=== PATIENT | male | born 2000 | race Hispanic/Latino ===

== ENCOUNTER 2021-05-18 23:08 | Inpatient (IN) | payer OTHER ==
[~2021-05-18] VITALS: Ht 165.1 cm; Wt 59.1 kg
[2021-05-19 01:24] LABS: HEMATOCRIT 44.2 % (42.0-52.0); HEMOGLOBIN 15.3 g/dl (13.5-17.5); MEAN CORPUSCULAR HEMOGLOBIN 30.9 pg (27.0-33.0); MEAN CORPUSCULAR HGB CONC 34.6 g/dl (32.0-36.5); MEAN CORPUSCULAR VOLUME 89.3 fl (80.0-96.0); PLATELET COUNT, AUTOMATED 219 10^3/uL (150-450); RED BLOOD COUNT 4.95 10^6/uL (4.30-6.10); WHITE BLOOD COUNT 8.6 10^3/uL (4.0-10.0)
[2021-05-19 01:46] LABS: AMPHETAMINES LEVEL URINE NEGATIVE (NEGATIVE); BARBITURATES URINE NEGATIVE (NEGATIVE); BENZODIAZEPINES URINE NEGATIVE (NEGATIVE); CANNABINOIDS URINE NEGATIVE (NEGATIVE); COCAINE METABOLITE URINE NEGATIVE (NEGATIVE); METHADONE URINE NEGATIVE (NEGATIVE); OPIATES URINE NEGATIVE (NEGATIVE); PHENCYCLIDINE URINE NEGATIVE (NEGATIVE)
[2021-05-19 01:53] LABS: ALBUMIN 4.1 GM/DL (3.2-5.2); ALT/SGPT 33 U/L (12-78); BILIRUBIN,DIRECT 0.1 MG/DL (0.0-0.2); BILIRUBIN,TOTAL 0.4 MG/DL (0.2-1.0); BLOOD UREA NITROGEN 14 MG/DL (7-18); CALCIUM LEVEL 8.8 MG/DL (8.5-10.1); CARBON DIOXIDE LEVEL 29 MEQ/L (21-32); CHLORIDE LEVEL 106 MEQ/L (98-107); CREATININE FOR GFR 0.88 MG/DL (0.70-1.30); ETHYL ALCOHOL (ETHANOL) < 0.003 % (0.000-0.010); GLUCOSE, FASTING 84 MG/DL (70-100); POTASSIUM SERUM 3.9 MEQ/L (3.5-5.1); SALICYLATE LEVEL < 1.7 MG/DL (5.0-30.0); SODIUM LEVEL 140 MEQ/L (136-145); TOTAL PROTEIN 7.8 GM/DL (6.4-8.2)
[2021-05-19 01:54] LABS: ACETAMINOPHEN LEVEL < 2.0 UG/ML (10.0-30.0)
[2021-05-19] MEDS ORDERED: HOME MED LIST COMPLETE! XX SCH (13:35)
[2021-05-19 15:02] LABS: RSV AMPLIFICATION NEGATIVE (NEGATIVE)
[2021-05-19] MEDS ORDERED: MOM 30ML SUSPENSION UDC PO PRN (16:30)
[2021-05-19] MEDS ORDERED: ACETAMINOPHEN TAB 650MG DOSE (2X325MG) PO PRN (16:30)
[2021-05-19] MEDS ORDERED: MAALOX 30 ML SUSP *UDC PO PRN (16:30)
[2021-05-19] MEDS ORDERED: traZODone 50 MG TAB PO PRN (16:30)
[2021-05-19 18:59] VITALS: BP 141/86
[2021-05-20 06:34] VITALS: BP 118/78
--- NOTE | 2021-05-20 13:19 | MHHPEPDOC ---
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 States, "I tried to shove it off and continued training but it got worse. I was telling myself, I would do anything to have this feeling go away. 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 Patient has only been been in the [employer] since September and [facility] is the first duty station. This is his first psychiatric hospitalization. Denies a history of depression. However he reports history of anxiety prior to the [employer] but never seen by MD for it. States that he had increased anxiety since last year but not prior. States that he is always having Self Doubt. 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 During MHE pt described that he has had vague thoughts of suicide but no plan. Upon discussing with ED provider TW was informed that pt had a very descriptive plan that he provided to ED provider. 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 At this point pt seems to be minimizing symptoms in order to be discharged. Due to this and pt withholding the truth from TW, it is determined that pt reliability is in question. Psychiatric Review of Systems Depression (2 or more weeks): depressed mood, insomnia/hypersomnia, feelings of excess/guilt, feelings of worthlesness (feeling hopeless and helpless), decreased energy, difficulty concentrating, psychomotor changes, suicidal thoughts Ira (4 or more days of): denies Psychosis: denies PTSD: denies Anxiety: stressor related anxiety, panic attacks Anxiety/ 6 months or more of: restlessness, keyed up, easily fatigued, difficulty concentrating, sleep disturbance Past Psychiatric History Previous Psychiatric Diagnosis: None Previous Psychiatric Admissions: This is first Suicide Attempts: Denies Psychiatric Follow-up: Behavioral Health Psychiatric medications: None Past Medical History Medical Problems No contributory issues Appendectomy age 6 Allergies - NKDA Head Injury: No Seizures: No Hospitalizations: No Surgeries: Yes Family Medical/Psychiatric HX Medical Problems No contributory medical history Psychiatric Disorders: No Addiction: No Suicide Attemps/Completions: Yes (Maternal Uncle - killed himself with a razor he was incarcerated at the time) Addiction History nicotine (occasional smoker and vape) Social History Childhood: Born in [place], [place]. Parents before he was born. Lived with mother and stepfather, has an older brother and sister and younger sister. He is the third child. States he did decent until High School and then went to remedial school. Describes his childhood as "alone" Abuse/Trauma: Denies Current Living Situation: Lives in [facility] on post Education: High School Grad Employment: Active Duty Social Support: Friends Legal: None Marital: Single, No Children Mental Status Examination General Appearance: well groomed, appears stated age, hospital scubs/clothing Build: thin Demeanor: average, guarded Eye Contact: fair Activity: anxious Behavior: cooperative Speech: clear, low in volume Mood: depressed (mild), anxious Affect: constricted Thought Process: logical/linear Thought Content (Delusions): none reported Thought Content (Other): none reported Thought Content (Aggressive): none reported Perception (Hallucinations): none reported Perception (Other): none reported Cognition (Impairment of): none reported Cognition(Intelligence Est.): average Oriented: Awake, Alert, Oriented times three Insight: fair Judgment: Fair Psychosis: Denies Diagnoses Major Depressive Disorder, Single Episode, Moderate Unspecified Anxiety Disorder Nicotine Use Disorder A-FIB/CHADSVASC A-FIB History Current/History of A-Fib/PAF?: No Current PO Anticoag Therapy: No Assessment 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 States, "I tried to shove it off and continued training but it got worse. pt stated that he doesn't believe that there are many specific stressors he can identify, but stated that he always struggles with knowing his self-worth stating "I feel inferior to everyone, if I make one small mistake I think wow you fucking idiot and want to kill myself." Pt denies HI and AH/VH. 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 Patient is reporting depressive symptoms significant for major depressive disorder, and unspecified anxiety disorder. Patient does not currently want to start any medication, feels strongly that he would prefer psychotherapy for this current problem. Patient to be discharged when he is stable Initial Treatment Plan 1. Patient was admitted on a [9.39] status. 2. Complete history was obtained. 3. With patients permission, family will be contacted and database will be expanded. 4. Patients medication regimen will be reviewed and changed accordingly. 5. Patient will be provided with protected environment. 6. Patient will be treated with individual, group, and milieu therapies. 7. Patient will receive supportive psych-education. 8. Discharge planning will commence immediately. 9. Outpatient follow-up treatment will be strongly recommended. 10. The initial treatment plan will focus initially on: * Depression. * Risk for suicide. ESTIMATED LENGTH OF STAY: 3-5 DAYS. TIME SPENT COUNSELING AND COORDINATING INITIAL CARE: 60 minutes. N/A-No Antipsychotics Vital Signs Vital Signs Date Time Temp Pulse Resp B/P (MAP) Pulse Ox O2 Delivery O2 Flow Rate FiO2 05/20/21 06:34 98.0 66 12 118/78 (91) 95 Room Air Laboratory Data 24H Labs Laboratory Tests 2 05/19/21 14:08: Coronavirus (COVID-19)(PCR) NEGATIVE, Influenza Type A (RT-PCR) NEGATIVE, Influenza Type B (RT-PCR) NEGATIVE, Respiratory Syncytial Virus (PCR) NEGATIVE Medications No Active Prescriptions or Reported Meds Allergies Coded Allergies: No Known Allergies (Unverified , 05/18/21) CROW FUCHS NP May 20, 2021 10:13
--- NOTE | 2021-05-20 13:33 | HPEPDOC ---
[facility] Medical History & Physical Date of Admission May 19, 2021 Date of Service: May 20, 2021 Other Provider Audrey Sorenson NP, psychiatry Attending Physician: KIM NGUYEN DO History and Physical CHIEF COMPLAINT: Very bad anxiety HISTORY OF PRESENT ILLNESS: Patient is a 20-year-old male who presented to the inpatient mental health unit due to an anxiety attack. Patient stated that he tried to show evolving training but it got worse. Patient was having thoughts of self-harm. 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 Patient was admitted to the inpatient mental health unit. Patient does not have any medical problems at this time and states that he is not currently suicidal. PAST MEDICAL HISTORY: Denies PAST SURGICAL HISTORY: Appendectomy at age 6 SOCIAL HISTORY: Very occasionally smokes a cigarette, denies alcohol or illicit drug use. 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 REVIEW OF SYSTEMS: General: Patient denies fevers HEENT: Patient denies headaches Cardiovascular: Patient denies chest pain Respiratory: Patient denies shortness of breath, cough GI: Patient denies abdominal pain, nausea, vomiting, diarrhea : Patient denies increased frequency or pain with urination Extremities: Patient denies swelling or pain in extremities Neurological: Patient denies numbness or tingling in legs Skin: Patient denies any new rashes or lesions. Hematologic: Patient denies any easy bruising. Lymphatic: Patient denies any lumps lumps or bumps in neck, axilla, or groin HOME MEDICATIONS: Please see below. PHYSICAL EXAMINATION: VITAL SIGNS: Temperature 98.8, pulse 66, respiratory rate 12, blood pressure 118/78, pulse oximetry 95% on room air. General: Alert and oriented male patient who was walking on the unit when I walked on to the unit. Patient was able to walk into the examination room without any difficulty. Patient did not appear to be in any acute distress HEENT: Normocephalic, atraumatic, moist mucous membranes. Neck: No lymphadenopathy or thyromegaly Cardiac: Regular rate and rhythm, no murmurs, normal S1, normal S2 Pulm: Clear to auscultation bilaterally. No wheezes, rhonchi, rales Abd: Nondistended, nontender to palpation, normal bowel sounds Ext: No edema bilateral lower extremities Neuro: Patient was able to move all 4 extremities on command and reported equal sensation light touch in all 4 extremities. Skin: Skin of the head, neck, upper and lower extremities was examined did not show any evidence of rash or wounds. LABORATORY DATA: See below. IMAGING: No imaging has been performed MICROBIOLOGY: Please see below. ASSESSMENT: 20-year-old male who presented to the inpatient mental health unit for anxiety and suicidal ideations. . PLAN: 1. Depression/anxiety. Continue treatment per psychiatry. Disposition: Patient can be discharged per psychiatry. Please reconsult hospitalist if the need arises. Thank you for this consult. Vital Signs Vital Signs Date Time Temp Pulse Resp B/P (MAP) Pulse Ox O2 Delivery O2 Flow Rate FiO2 05/20/21 06:34 98.0 66 12 118/78 (91) 95 Room Air Laboratory Data Labs 24H Laboratory Tests 2 05/19/21 14:08: Coronavirus (COVID-19)(PCR) NEGATIVE, Influenza Type A (RT-PCR) NEGATIVE, Influenza Type B (RT-PCR) NEGATIVE, Respiratory Syncytial Virus (PCR) NEGATIVE Home Medications No Active Prescriptions or Reported Meds Allergies Coded Allergies: No Known Allergies (Unverified , 05/18/21) A-FIB/CHADSVASC A-FIB History Current/History of A-Fib/PAF?: No KIM NGUYEN DO May 20, 2021 13:33
[2021-05-20 16:09] VITALS: BP 134/63
[2021-05-21 06:41] VITALS: BP 113/73
--- NOTE | 2021-05-21 15:45 | MHIPNPDOC ---
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 States, "I tried to shove it off and continued training but it got worse. I was telling myself, I would do anything to have this feeling go away. 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 Patient has only been in the [employer] since September and [place] is the first duty station. This is his first psychiatric hospitalization. Denies a history of depression. However he reports history of anxiety prior to the [employer] but never seen by MD for it. States that he had increased anxiety since last year but not prior. States that he is always having Self Doubt. 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 During MHE pt. described that he has had vague thoughts of suicide but no plan. Upon discussing with ED provider TW was informed that pt. had a very descriptive plan that he provided to ED provider. When asked pt. 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 stated that he doesn't believe that there are many specific stressors he can identify, but stated that he always struggles with knowing his self-worth stating "I feel inferior to everyone, if I make one small mistake I think wow you fucking idiot and want to kill myself." Pt denies HI and AH/VH. 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 At this point pt. seems to be minimizing symptoms in order to be discharged. Due to this and pt. withholding the truth from TW, it is determined that pt. reliability is in question. VITAL SIGNS: See below. NEW TEST RESULTS: See TSH results tomorrow CURRENT MEDICATIONS: See below. 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 Denies suicidal/homicidal ideation, planning or intent. Abstract reasoning, and computation: fair Description of associations: denies, none observed Description of abnormal or psychotic thoughts: denies, none observed. Judgment: fair Insight: fair Orientation: alert and oriented to person, place, time and situation Recent and remote memory: intact Attention span and concentration: good Language: expansive Fund of knowledge: average Mood: Euthymic Mood Affect: reactive DIAGNOSES: Major Depressive Disorder, Single Episode, Moderate Unspecified Anxiety Disorder Nicotine Use Disorder ASSESSMENT: Patient is reporting decreased depression and anxiety. During his interview, we discussed his feelings of self doubt. Encouraged patient to realize that other's skill set on the target range should not be gauged by what his personal skills are. 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 He denies current suicidal ideations. He has declined medications, states that he prefers therapy. He has not attended groups and has isolated most of his admission. MANAGEMENT PLAN: Patient will continue supportive therapies. He has declined medications for depression and anxiety and feels that his first line of defense will be cognitive therapy. Will be discharged tomorrow TIME SPENT: 25 minutes. Vital Signs Vital Signs Date Time Temp Pulse Resp B/P (MAP) Pulse Ox O2 Delivery O2 Flow Rate FiO2 05/21/21 06:41 98.1 77 16 113/73 (86) 98 Room Air Current Medications Current Medications Medications (Trade) Dose Ordered Sig/Srikanth Route PRN Reason Start Time Stop Time Status Last Admin Dose Admin Acetaminophen (Tylenol Tab) 650 mg Q6HP PRN PO HEADACHE or MILD DISCOMFORT 05/19/21 16:30 Al Hydrox/Mg Hydrox/Simethicone (Mylanta) 30 ml Q4HP PRN PO HEARTBURN/INDIGESTION 05/19/21 16:30 Home Med (Home Med List Complete!) ASDIRECTED XX 05/19/21 13:35 05/19/21 13:41 DC Magnesium Hydroxide (Milk Of Magnesia) 30 ml DAILYPRN PRN PO CONSTIPATION 05/19/21 16:30 Trazodone HCl (Desyrel) 50 mg QHSP PRN PO INSOMNIA 05/19/21 16:30 Allergies Coded Allergies: No Known Allergies (Unverified , 05/18/21) CROW FUCHS NP May 21, 2021 15:45
[2021-05-21 16:11] VITALS: BP 123/58
[2021-05-22 07:37] VITALS: BP 121/62
--- NOTE | 2021-05-22 11:15 | MHDSPDOC ---
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 States, "I tried to shove it off and continued training but it got worse. I was telling myself, I would do anything to have this feeling go away. 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 Patient has only been in the [employer] since September and [place] is the first duty station. This is his first psychiatric hospitalization. Denies a history of depression. However he reports history of anxiety prior to the [employer] but never seen by MD for it. States that he had increased anxiety since last year but not prior. States that he is always having Self Doubt. 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 During MHE pt. described that he has had vague thoughts of suicide but no plan. Upon discussing with ED provider TW was informed that pt. had a very descriptive plan that he provided to ED provider. When asked pt. 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 stated that he doesn't believe that there are many specific stressors he can identify, but stated that he always struggles with knowing his self-worth stating "I feel inferior to everyone, if I make one small mistake I think wow you fucking idiot and want to kill myself." Pt denies HI and AH/VH. 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 At this point pt. seems to be minimizing symptoms in order to be discharged. Due to this and pt. withholding the truth from TW, it is determined that pt. reliability is in question. VITAL SIGNS: See below. CONSULTANTS INVOLVED: See Medical H + P by Hospitalist TREATMENT AND PROGRESS ON THE UNIT: Patient was admitted to the [facility] on a 9.39 legal status was afforded the following treatment modalities: 1) Individual Therapy 2) Group Therapy 3) Medication Management 4) Milieu Therapy 5) Safe Environment HOSPITAL COURSE: Patient was admitted to [facility] on a 9.39 legal status. 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 During individual therapy pt. expresses being sensitive with internal thoughts that others are judging him on performance and feels inferior to their skills. He agrees that he is shy and keeps small group of friends, has social anxiety, poor self-image and overinflates potential problems. During inpatient stay he was isolated to his room and stated "it was nice to catch up on sleep." He attended one group, then returned to his room. Supportive therapy relating to avoidant personality disorder symptoms to identify how to decrease negative thinking and increase self esteem. Mood, anxiety, and intrusive thoughts improved with treatment. Pt attended minimal groups during stay. Pts symptoms improved with treatment. On day of discharge pt. denied depression, anxiety, insomnia, SI/HI, hallucinations, delusions. Pt was discharged home with [facility] of [facility] follow-up with [facility]. Pt felt safe for discharge. DISCHARGE ASSESSMENT: In today's interview, patient is alert and oriented, pt.s dress is appropriate. Hygiene and grooming is well-kempt. Smiles on approach and is pleasant and engaged in the interview. Denies depression and anxiety. Denies suicidal and homicidal ideation, planning or intent. Denies and is not observed with syed, psychotic symptoms of delusions, bizarre thinking, obs essions, paranoia, ruminations illogical thoughts, flight of ideas or having poor insight and judgement. At discharge patient has normal mentation, declines further hospitalization on a voluntary status and meets criteria for discharge today. 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 Denies suicidal/homicidal ideation, planning or intent. Abstract reasoning, and computation: fair Description of associations: denies, none observed Description of abnormal or psychotic thoughts: denies, none observed. Judgment: fair Insight: fair Orientation: alert and oriented to person, place, time and situation Recent and remote memory: intact Attention span and concentration: good Language: expansive Fund of knowledge: average Mood: Euthymic Mood Affect: reactive Suicide Risk Assessment: 1) Does the patient wish to be ? No 2) Since your admission, have you had any actual thought of killing yourself? No 3) Since your admission, have you been thinking about how you might do this? No 4) Since your admission, have you had these thoughts and had some intention of acting on them? No 5) Since your admission, have you started to work out or worked out the det ails of how to kill yourself? No 5A) Do you intent to carry out this plan? No and NA 6) Have you ever done anything, started anything, or prepared to do anything with any intent to ? No 6A) How long since your admission did you do any of these? NA MEDICATIONS ON DISCHARGE: See Medication Reconciliation PLAN/FOLLOWUP ARRANGEMENTS: Pt was discharged home with [facility] with [facility]. Pt felt safe for discharge. The amount of time spent in the coordination of care for this patient was approximately 25 minutes. ETOH/Disorder Med Rx ETOH/DRUG DISORDER RX: N/A Vital Signs/I&Os Vital Signs Date Time Temp Pulse Resp B/P (MAP) Pulse Ox O2 Delivery O2 Flow Rate FiO2 05/22/21 07:37 97.8 90 16 121/62 (81) 99 Room Air Medications No Active Prescriptions or Reported Meds Allergies Coded Allergies: No Known Allergies (Unverified , 05/18/21) CROW FUCHS NP May 22, 2021 09:01
== END 2021-05-22 12:30 | disposition home or self-care (01) | DRG 885 ==
LOC: M ED 23:08 → M ED INP 05-19 16:28 → M PSY 05-19 18:40
PROVIDERS: ADMIT Psychiatry & Neurology Psychiatry; ATTEND Psychiatry & Neurology Psychiatry
DX: F32.1 Major depressive disorder, single episode, moderate (principal); R45.851 Suicidal ideations; F32.9 Major depressive disorder, single episode, unspecified; F17.210 Nicotine dependence, cigarettes, uncomplicated; F60.6 Avoidant personality disorder; Z20.822 Contact with and (suspected) exposure to COVID-19; Z90.49 Acquired absence of other specified parts of digestive tract

== ENCOUNTER 2023-06-03 15:55 | Inpatient (IN) | payer OTHER ==
[~2023-06-03] VITALS: Ht 167.6 cm; Wt 62.8 kg
[2023-06-03] MEDS ORDERED: NICOTINE 21MG/24HR 1 EA TRANSDERMAL TD ONE (16:35)
[2023-06-03 16:37] LABS: HEMATOCRIT 43.1 % (42.0-52.0); HEMOGLOBIN 15.2 g/dl (13.5-17.5); MEAN CORPUSCULAR HEMOGLOBIN 31.7 pg (27.0-33.0); MEAN CORPUSCULAR HGB CONC 35.3 g/dl (32.0-36.5); PLATELET COUNT, AUTOMATED 227 10^3/uL (150-450); RED BLOOD COUNT 4.79 10^6/uL (4.30-6.10); WHITE BLOOD COUNT 7.5 10^3/uL (4.0-10.0)
[2023-06-03 16:55] LABS: AMPHETAMINES LEVEL URINE NEGATIVE (NEGATIVE); BARBITURATES URINE NEGATIVE (NEGATIVE); COCAINE METABOLITE URINE NEGATIVE (NEGATIVE); METHADONE URINE NEGATIVE (NEGATIVE); PHENCYCLIDINE URINE NEGATIVE (NEGATIVE)
[2023-06-03 16:56] LABS: BENZODIAZEPINES URINE NEGATIVE (NEGATIVE); CANNABINOIDS URINE NEGATIVE (NEGATIVE); OPIATES URINE NEGATIVE (NEGATIVE)
[2023-06-03 16:58] LABS: ETHYL ALCOHOL (ETHANOL) < 0.003 % (0.000-0.010)
[2023-06-03 16:59] LABS: SALICYLATE LEVEL < 3.0 MG/DL (<30)
[2023-06-03 17:00] LABS: ALBUMIN 4.3 G/DL (3.2-5.2); ALKALINE PHOSPHATASE 121 U/L (46-116); ALT/SGPT 22 U/L (7.0-40); AST/SGOT 13 U/L (<34); BILIRUBIN,DIRECT 0.2 MG/DL (<0.4); BILIRUBIN,TOTAL 0.4 MG/DL (0.3-1.2); BLOOD UREA NITROGEN 11 MG/DL (9-23); CALCIUM LEVEL 9.6 MG/DL (8.5-10.1); CARBON DIOXIDE LEVEL 28 MMOL/L (20-31); CHLORIDE LEVEL 105 MMOL/L (98-107); CREATININE FOR GFR 0.89 MG/DL (0.70-1.30); GLOMERULAR FILTRATION RATE > 60.0 (>60); GLUCOSE, FASTING 77 MG/DL (60-100); POTASSIUM SERUM 3.9 MMOL/L (3.5-5.1); SODIUM LEVEL 142 MMOL/L (136-145); TOTAL PROTEIN 7.5 G/DL (5.7-8.2)
[2023-06-03 17:02] LABS: THYROID STIMULATING HORMONE 0.946 uIU/ML (0.55-4.78)
[2023-06-03] MEDS ORDERED: diphenhydrAMINE 25MG CAP PO PRN (18:50)
[2023-06-03] MEDS ORDERED: MAALOX 30 ML SUSP *UDC PO PRN (18:50)
[2023-06-03] MEDS ORDERED: IBUPROFEN 400MG TAB PO PRN (18:50)
[2023-06-03] MEDS ORDERED: MOM 30ML SUSPENSION UDC PO PRN (18:50)
[2023-06-03] MEDS ORDERED: ACETAMINOPHEN TAB 650MG DOSE (2X325MG) PO PRN (18:50)
[2023-06-03] MEDS ORDERED: LEXA1TAB PO (23:36)
[2023-06-03] MEDS ORDERED: HOME MED LIST COMPLETE! XX SCH (23:40)
[2023-06-04 01:39] VITALS: BP 110/58; TEMP 97.5; O2SAT 97
[2023-06-04 06:14] VITALS: BP 106/52; TEMP 97.6; O2SAT 99
[2023-06-04] MEDS: NICOTINE 21MG/24HR 1 EA TRANSDERMAL TD SCH (10:05)
[2023-06-04 16:50] VITALS: BP 130/68; TEMP 97.5; O2SAT 97
[2023-06-04] MEDS: ESCITALOPRAM OXALATE 10 MG TAB (LEXAPRO) PO SCH (20:15)
[2023-06-05 06:44] VITALS: BP 105/58; TEMP 97.9; O2SAT 99
[2023-06-05] MEDS: NICOTINE 21MG/24HR 1 EA TRANSDERMAL TD SCH (10:03)
[2023-06-05 16:30] VITALS: BP 114/56; TEMP 98; O2SAT 100
[2023-06-05] MEDS: ESCITALOPRAM OXALATE 10 MG TAB (LEXAPRO) PO SCH (20:00)
[2023-06-05] MEDS: traZODone 50 MG TAB PO PRN (20:00)
[2023-06-06 06:39] VITALS: BP 104/68; TEMP 98.3; O2SAT 99
[2023-06-06] MEDS: NICOTINE 21MG/24HR 1 EA TRANSDERMAL TD SCH (08:44)
[2023-06-06 16:15] VITALS: BP 122/89; TEMP 98.2; O2SAT 100
[2023-06-06] MEDS: traZODone 50 MG TAB PO PRN (21:41)
[2023-06-06] MEDS: ESCITALOPRAM OXALATE 10 MG TAB (LEXAPRO) PO SCH (21:41)
[2023-06-07 06:41] VITALS: BP 114/56; TEMP 97.9; O2SAT 98
[2023-06-07] MEDS: NICOTINE 21MG/24HR 1 EA TRANSDERMAL TD SCH (09:39)
[2023-06-07] MEDS ORDERED: ESCITALOPRAM OXALATE 10 MG TAB (LEXAPRO) PO SCH (12:00)
[2023-06-07 16:31] VITALS: BP 123/57; TEMP 97.8; O2SAT 98
[2023-06-07] MEDS: traZODone 50 MG TAB PO PRN (20:03)
[2023-06-08 06:35] VITALS: BP 119/67; TEMP 98; O2SAT 97
[2023-06-08] MEDS: NICOTINE 21MG/24HR 1 EA TRANSDERMAL TD SCH (08:42)
[2023-06-08] MEDS ORDERED: NICO21PAT TD (09:05)
[2023-06-08] MEDS ORDERED: TRAZ-252 PO (09:05)
[2023-06-08] MEDS ORDERED: LEXA1TAB PO (09:05)
== END 2023-06-08 11:24 | disposition home or self-care (01) | DRG 881 ==
LOC: M ED 15:55 → M ED INP 18:50 → M PSY 06-04 01:35
PROVIDERS: ADMIT Student in an Organized Health Care Education/Training Program; ATTEND Student in an Organized Health Care Education/Training Program
DX: F32.A Depression, unspecified (principal); R45.851 Suicidal ideations; F17.210 Nicotine dependence, cigarettes, uncomplicated; F10.10 Alcohol abuse, uncomplicated; Z79.899 Other long term (current) drug therapy; Z20.822 Contact with and (suspected) exposure to COVID-19; F43.10 Post-traumatic stress disorder, unspecified; F41.9 Anxiety disorder, unspecified; Z90.49 Acquired absence of other specified parts of digestive tract